=== PATIENT | female | born 1985 | race Caucasian/White ===

== ENCOUNTER → 2021-01-11 14:05 | Outpatient (BNVA) | payer MEDICARE, MEDICAID, SELFPAY | PROVIDERS: PCP Internal Medicine; Referring Provider Internal Medicine; Visit Provider Physician Assistant | DX: E66.01 Morbid (severe) obesity due to excess calories (principal); K91.2 Postsurgical malabsorption, not elsewhere classified; Z90.3 Acquired absence of stomach [part of]; Z68.41 Body mass index [BMI] 40.0-44.9, adult | CPT/HCPCS: 99202 ==

== ENCOUNTER 2021-01-15 09:10 | Outpatient (REF) | payer MEDICARE, MEDICAID, SELFPAY ==
[2021-01-15 10:12] LABS: MANUAL DIFF FLAG NO
[2021-01-15 10:13] LABS: Basophils Percent Auto 0.2 % (0-2); Eosinophils Percent Auto 0.6 % (0-4); Hematocrit 39.1 % (37-47); Hemoglobin 12.1 g/dl (12.0-16.0); Imm Gran Abs Auto 0.01 X10*3/uL (0.00-0.03); Imm Gran Pct Auto 0.2 % (0.0-0.4); Lymphocytes Absolute Auto 1.4 X10*3/uL (1.2-4.9); Lymphocytes Percent Auto 22.9 % (20-40); Mean Corpuscular HGB Conc 30.9 g/dl (31.0-35.0); Mean Corpuscular Hemoglobin 25.9 pg (27.0-33.0); Mean Corpuscular Volume 83.5 fL (80-98); Mean Platelet Volume 9.8 fL (9.4-12.3); Monocytes Absolute Auto 0.4 X10*3/uL (0.1-1.2); Monocytes Percent Auto 5.6 % (2-11); Neutrophils Absolute Auto 4.4 X10*3/uL (2.0-8.3); Neutrophils Percent Auto 70.5 % (45-73); Platelet Count 248 X10*3/uL (160-400); Red Blood Count 4.68 X10*6/uL (4.20-5.50); Red Cell Distribution Width 15.2 % (11.0-16.0); White Blood Count 6.2 X10*3/uL (4.8-10.8)
[2021-01-15 10:21] LABS: Estimated Average Glucose 105 mg/dL; Hemoglobin A1c % 5.3 %
[2021-01-15 10:40] LABS: Alanine Aminotransferase 18 U/L (0-31); Albumin Level 4.2 g/dL (3.5-5.0); Alkaline Phosphatase 46 U/L (39-117); Anion Gap 12 (12-20); Aspartate Amino Transferase 25 U/L (5-31); Bilirubin Total 0.6 mg/dL (0.0-1.0); Blood Urea Nitrogen 9 mg/dL (9-16); C Reactive Protein 0.17 mg/dL (< or = 0.50); Calcium 9.3 mg/dL (8.4-10.2); Carbon Dioxide 26 mmol/L (22-29); Chloride 106 mmol/L (96-108); Cholesterol 130 mg/dL; Estimated Glomerular Filt Rate > 60; Glucose Fasting 96 mg/dL (60-99); HDL Cholesterol 59 mg/dL; Iron 41 mcg/dL (30-160); LDL Cholesterol Calculated 60 mg/dl; Percent Iron Saturation 10 % (15-50); Potassium 3.8 mmol/L (3.3-5.1); Sodium 140 mmol/L (135-145); Total Iron Binding Capacity 407 mcg/dL (228-428); Total Protein 7.5 g/dL (6.5-8.0); Triglycerides 55 mg/dL; Unsaturated Iron Binding 366 ug/dL
[2021-01-15 11:03] LABS: Ferritin 11 ng/mL (10-122); TSH reflex Free T4 1.49 uIU/mL (0.32-4.0)
[2021-01-15 11:31] LABS: Folate 13.3 ng/mL (> or = 4.0); Vitamin B12 493 pg/mL (200-900)
[2021-01-16 08:51] LABS: Insulin Level Total 14.2 uIU/mL
[2021-01-16 19:47] LABS: Calcium (PTHI) 9.4 mg/dL (8.6-10.2); PTHI 55 pg/mL (14-64)
[2021-01-18 06:51] LABS: Zinc 95 mcg/dL (60-130)
[2021-01-19 11:32] LABS: Vitamin B1 <6 nmol/L (8-30)
[2021-01-20 00:52] LABS: Vitamin A 34 mcg/dL (38-98)
== END 2021-01-15 09:11 | disposition home or self-care (01) ==
LOC: HO.10HDL 09:10
PROVIDERS: Visit Provider Physician Assistant
DX: K91.2 Postsurgical malabsorption, not elsewhere classified (principal); E66.01 Morbid (severe) obesity due to excess calories; Z68.41 Body mass index [BMI] 40.0-44.9, adult; Z90.3 Acquired absence of stomach [part of]
CPT/HCPCS: 36415; 80053; 80061; 82306; 82607; 82728; 82746; 83036; 83525; 83540; 83970; 84425; 84443; 84590; 84630; 85025; 86140

== ENCOUNTER 2021-01-25 10:03 | Day surgery (SDC) | payer MEDICARE, MEDICAID, SELFPAY ==
[2021-01-18 13:14] VITALS: BMI 44.4
--- NOTE | 2021-01-24 07:56 | HO.ANESPROP2 ---
Documented by User: Jillian Grayney 01/24/21 07:57 HPI - Anesthesia Eval Consult details Narrative: 35yo F for Upper Endoscopy s/p gastric sleeve 2018 [facility] Active Problems Active Problems: All Active Problems (Updated 01/22/21 @ 17:02 by Sofi Chavarria PA-C) Vitamin A deficiency (Acute) Vitamin D deficiency (Acute) Vitamin B12 deficiency (Acute) History of sleeve gastrectomy (Acute) Intestinal malabsorption following gastrectomy (Acute) Morbid obesity (Acute) Adult BMI 40.0-44.9 kg/sq m (Acute) Arthritis (Acute) Past Medical History Medical History Adult BMI 40.0-44.9 kg/sq m Arthritis Asthma Intestinal malabsorption following gastrectomy Morbid obesity Vitamin A deficiency Vitamin B12 deficiency Vitamin D deficiency Family History Family History Mother Arthritis Hepatitis C Father No problems noted. Brother No problems noted. Sister No problems noted. Sister No problems noted. Sister No problems noted. Sister No problems noted. Son No problems noted. Son No problems noted. Daughter No problems noted. 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 If so, by whom?: No Are you DNR?: No Advance Directives Information Provided: No Recently lost weight without trying: No Eating poorly because of decreased appetite: No Nutrition Risks: No Nutritional Risk Patient : No FDLMP: 12/30/20 : No Poor oral hygiene: No Meds Allergies Allergy/AdvReac Type Severity Reaction Status Date / Time No Known Allergies Allergy Verified 01/25/21 10:16 Home Medications Medication Instructions Recorded Confirmed Last Taken Type acetaminophen 325 mg capsule 325 mg PO QID PRN 01/11/21 01/18/21 Unknown History albuterol sulfate [Ventolin HFA] 2 puff INHALATION Q4-6H PRN 01/18/21 01/18/21 Unknown History multivitamin 1 tab PO DAILY 01/18/21 01/18/21 Unknown History Exam Exam Date and Time: January 24, 2021 0756 Height,Weight and Vital Signs: Height 5 ft 4 in Weight 117.299 kg Assessment and Plan Assessment Anesthesia Assessment: Chart Reviewed Documented by User: Taina Nieves 01/25/21 11:13 [facility] Past Medical History Medical History Adult BMI 40.0-44.9 kg/sq m Arthritis Asthma Intestinal malabsorption following gastrectomy Morbid obesity Vitamin A deficiency Vitamin B12 deficiency Vitamin D deficiency Family History Family History Mother Arthritis Hepatitis C Father No problems noted. Brother No problems noted. Sister No problems noted. Sister No problems noted. Sister No problems noted. Sister No problems noted. Son No problems noted. Son No problems noted. Daughter No problems noted. 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 If so, by whom?: No Are you DNR?: No Advance Directives Information Provided: No Recently lost weight without trying: No Eating poorly because of decreased appetite: No Nutrition Risks: No Nutritional Risk Patient : No FDLMP: 12/30/20 : No Poor oral hygiene: No Meds Allergies Allergy/AdvReac Type Severity Reaction Status Date / Time No Known Allergies Allergy Verified 01/25/21 10:16 Home Medications Medication Instructions Recorded Confirmed Last Taken Type acetaminophen 325 mg capsule 325 mg PO QID PRN 01/11/21 01/18/21 Unknown History albuterol sulfate [Ventolin HFA] 2 puff INHALATION Q4-6H PRN 01/18/21 01/18/21 Unknown History multivitamin 1 tab PO DAILY 01/18/21 01/18/21 Unknown History Exam Height,Weight and Vital Signs: Vital Signs Temp Pulse Resp BP Pulse Ox 01/25/21 10:40 96.9 F 53 20 107/63 97 Pertinent Lab Results Pertinent Lab Results: Lab Results 01/25/21 01/25/21 Range/Units 10:20 10:25 Urine Test NEGATIVE (NEGATIVE) COVID-19 ([facility]MARIO) Negative (Negative) COVID-19 Clin Com See Note Airway Mallampati Class: II TM Dist: >3cm Neck ROM: Full Heart: RRR Lungs: CTAB Assessment and Plan Assessment Anesthesia Assessment: Anesthesia Plan Discussed and Chart Reviewed Final Anesthetic Review NPO: Yes ASA Class: III Final Preanesthetic Review: No Changes in Pt Med Stat, Meds/Allgs Chart Reviewed, Consent Obtained/Reviewed and Anes Risks/Benef Reviewed Patient Risk: Intermediate Procedure Risk: Low Assessment/Block/Sedation in SS: Assess/Block/Sedation-SS Anesthetic Plan Anesthetic Plan: MAC: Disposition: Standard PACU
--- NOTE | 2021-01-24 23:09 | MHC.SHP ---
Pre-Procedural Eval Section A The patient is an INPATIENT: No The History & Physical has been completed within 30 days and I have reviewed it.: Yes Section B Chief Complaint: reflux Details of Present Illness: GERD Relevant Family History (Specify if Yes): No Relevant Social History: None Present Medications: see Short Stay Collaborative assessment Medical History: No relevant PMH History of Previous Operations: Relevant previous surgery/procedure and date(s) (sleeve gastrectomy) Allergies: Allergies Allergy/AdvReac Type Severity Reaction Status Date / Time No Known Allergies Allergy Verified 01/11/21 14:42 Review of Systems Sugical H&P ROS: Negative: Constitution, Cardiovascular, Respiratory, Neurological, Psychiatric, Hem-Onc, Allergic/Immunologic, Gastrointestinal, Genitourinary, Musculoskeletal, Integumentary, Endocrine and Eyes/Ears/Nose/Throat Exam Surgical H&P Exam: Normal: HEENT, Normal: Heart, Normal: Lungs, Normal: Extremities, Normal: Abdomen, Normal: Skin and Normal: Neurological Plan Diagnosis/Plan: Unchanged (EGD to assess GERD and sleeve anatomy) I have reviewed the history and physical and performed a pertinent physical examination on my patient. No changes have occurred unless specified.
[2021-01-25 10:40] VITALS: BP 107/63; PULSE 53; RESP 20; TEMP 36.1; O2SAT 97
[2021-01-25 10:43] LABS: UPreg QC Valid YES; Urine Pregnancy NEGATIVE (NEGATIVE)
[2021-01-25] MEDS: Lactated Ringers 1,000 ML 100 ML IVCONT (10:52)
[2021-01-25 10:54] LABS: COVID-19 Test Negative (Negative)
--- NOTE | 2021-01-25 12:47 | PM.OP ---
Brief Operative Note Date of Service: 01/25/21 Pre-op diagnosis: Inadequate weight loss, s/p sleeve gastrectomy Post-op diagnosis: same (extremely redundant gastric fundus and functional narrowing at mid-sleeve) Procedure: PROCEDURE DATE: 09/23/2019 PREOPERATIVE DIAGNOSIS: GERD, s/p sleeve gastrectomy POSTOPERATIVE DIAGNOSIS: Same as above. 1) small hiatal hernia, 2) distal gastritis PROCEDURE: [id number]-vzbelfjybdci with biopsies Surgeon: Nate Sotelo M.D.. Ph.D. Jewelry Maker: None Anesthesia: IV sedation Estimated blood loss: Minimal FINDINGS AND PROCEDURE: OPERATIVE INDICATIONS: The patient is a 35 year old female known to me who underwent a laparoscopic sleeve gastrectomy elsewhere. The patient had inadequate weight loss so far and present for a revision. Based on this information I recommended an upper endoscopy to evaluate the patient's symptoms. Risks and complications of the surgery were discussed with the patient in advance particularly the possibility of perforation or bleeding that may require surgical intervention. The patient understood the risks and was in agreement with the plan. PROCEDURE: After informed consent was obtained by the patient, the patient was transferred to the Operating Room and was placed in the supine position. After successful induction of IV sedation, a mouth block was inserted and the patient was placed in the left lateral decubitus position. An upper endoscopy was performed next, the oropharynx and esophagus appeared within the normal limits. There was no hiatal hernia. The z-line was smooth. Two biopsies were obtained from the distal esohagus 2-3 cm proximal to the GE junction and two additional biopsies from the GE junction. The sleeve was entered. There was significant redundancy of the proximal fundus suggesting incomplete resection at the time of the original sleeve gastrectomy. There was also a functional narrowing at the incisura angularis. The scope was pass easily through but the lumen in that area is significantly smaller compared to the remaining proximal and distal sleeve. There was no ulcer. Biopsy was obtained from the proximal sleeve. No significant bleeding was noted from any of the biopsy sites. The scope was then advanced into the duodenum which appeared to be normal as well. At that point the duodenum and the sleeve were decompressed and the scope was withdrawn from the patient's mouth. The patient extubated and was transferred in stable condition to the Recovery Room for further care. I was present and performed all steps of the procedure. There were no residents to assist with this case. Nate Sotelo M.D., Ph.D. Surgeon: César Sotelo MD Anesthesia: MAC Was an Jewelry Maker used for this Procedure?: No Estimated blood loss (mL): 0 IV fluids (mL): 400 Urine output (mL): 0 (No Marte to record) Pathology: other (GEJ x2, distal esophagus x2, proximal sleeve x1) Condition: stable Disposition: PACU
[2021-01-25 12:51] VITALS: BP 99/64; PULSE 82; RESP 16; TEMP 36.1; O2SAT 100
[2021-01-25 13:11] VITALS: BP 107/64; PULSE 54; RESP 18; TEMP 36.5; O2SAT 99
== END 2021-01-25 13:35 ==
LOC: HO.SSS 10:03
PROVIDERS: Nurse Practitioner; PCP Internal Medicine; Visit Provider Surgery
PROC: 0DJ08ZZ Inspection of Upper Intestinal Tract, Via Natural or Artificial Opening Endoscopic (ICD-10-PCS; CPT 43235; principal; 2021-01-25 11:40)
DX: K21.9 Gastro-esophageal reflux disease without esophagitis (principal); K91.2 Postsurgical malabsorption, not elsewhere classified; Z90.3 Acquired absence of stomach [part of]; K31.89 Other diseases of stomach and duodenum; K29.70 Gastritis, unspecified, without bleeding; K44.9 Diaphragmatic hernia without obstruction or gangrene; E66.01 Morbid (severe) obesity due to excess calories; Z68.41 Body mass index [BMI] 40.0-44.9, adult; Z98.84 Bariatric surgery status; J45.909 Unspecified asthma, uncomplicated; E50.9 Vitamin A deficiency, unspecified; E53.8 Deficiency of other specified B group vitamins; E55.9 Vitamin D deficiency, unspecified; Z90.49 Acquired absence of other specified parts of digestive tract; Z79.899 Other long term (current) drug therapy; Z87.891 Personal history of nicotine dependence; Z20.822 Contact with and (suspected) exposure to COVID-19
CPT/HCPCS: 43239; 36415; 81025; 87635; 88305; 88342

== ENCOUNTER → 2021-02-01 14:01 | Outpatient (BNVA) | payer MEDICARE, MEDICAID, SELFPAY | PROVIDERS: PCP Internal Medicine; Referring Provider Internal Medicine; Visit Provider Physician Assistant | DX: E66.01 Morbid (severe) obesity due to excess calories (principal); K91.2 Postsurgical malabsorption, not elsewhere classified; Z90.3 Acquired absence of stomach [part of]; Z68.41 Body mass index [BMI] 40.0-44.9, adult | CPT/HCPCS: 99212 ==

== ENCOUNTER → 2021-02-12 11:27 | Outpatient (BNVA) | payer MEDICARE, MEDICAID, SELFPAY | PROVIDERS: PCP Internal Medicine; Visit Provider Surgery | DX: E66.01 Morbid (severe) obesity due to excess calories (principal); J45.909 Unspecified asthma, uncomplicated; M19.90 Unspecified osteoarthritis, unspecified site; K91.2 Postsurgical malabsorption, not elsewhere classified; Z90.3 Acquired absence of stomach [part of] | CPT/HCPCS: 99212 ==

== ENCOUNTER 2021-02-21 08:58 | Outpatient (REF) | payer MEDICARE, MEDICAID, SELFPAY ==
--- NOTE | ~2021-02-21 | FL_ITS ---
EXAMINATION: XR GI SERIES CLINICAL INFORMATION: Postsurgical malabsorption. History of gastric sleeve procedure. COMPARISON: None TECHNIQUE: Upper GI was performed using thin and thick barium and effervescent granules FINDINGS: Esophageal motility is normal. There is gastroesophageal reflux. No hernia is seen. There does not appear to be significant reduction in the size of the stomach post gastric sleeve. On the left lateral view there is a vertical cleft visualized in the proximal stomach may be related to patient's gastric sleeve procedure. No mass, stricture, fold thickening or ulcer is seen. FLUOROSCOPY TIME: 0.9 minutes DOSE AREA PRODUCT: 12 mock per centimeter squared. Total dose 46 mgy. 19 saved fluoroscopic images. FL/FL upper GI series IMPRESSION: Mild gastroesophageal reflux.
--- NOTE | ~2021-02-21 | US_ITS ---
EXAMINATION: US COMPLETE ABDOMEN WITH LIVER ELASTOGRAPHY CLINICAL INFORMATION: Obesity COMPARISON: None. TECHNIQUE: Real-time imaging of the abdominal viscera. Noninvasive ultrasound liver fibrosis assessment is performed using Oj ElastPQ point quantification shear wave elastography (pSWE) with a C5-2 MHz transducer. Multiple elastography samples are obtained. FINDINGS: PANCREAS: The head of the pancreas is normal-appearing. The body and tail the pancreas are not well visualized due to bowel gas. ABDOMINAL AORTA: The proximal, middle, and distal aortic segments are normal in caliber. INFERIOR VENA CAVA: Visualized portions are normal. LIVER: Normal. The liver demonstrates normal size, contour and echogenicity. No focal lesion or intrahepatic biliary duct dilatation. The right lobe measures 16 cm in length. The left lobe measures 10 cm in length. Portal flow is normal/hepatopedal Shear wave liver elastography median stiffness is 1.44 m/s (reference: normal median stiffness is 1.3 m/s or less). IQR/median stiffness to assess sampling precision is 0.22 (reference: good quality data set is IQR/median stiffness of 0.15 or less). GALLBLADDER: Surgically removed COMMON BILE DUCT: Normal in caliber measuring 0.2 cm in diameter. RIGHT KIDNEY: Normal. No hydronephrosis. No renal calculi or focal parenchymal lesions. The kidney measures 11 cm in maximum dimension. LEFT KIDNEY: Normal. No hydronephrosis. No renal calculi or focal parenchymal lesions. The kidney measures 12 cm in maximum dimension. SPLEEN: Normal. The spleen measures 11 cm in maximum dimension. FREE FLUID: None. US/US abdomen comp w elastography IMPRESSION: 1. Impression: Normal-appearing liver. Limited visualization of the pancreas. Post cholecystectomy. 2. Liver elastography: Slightly limited due to sampling error. In the absence of other known clinical signs, rules out compensated advanced chronic liver disease. REFERENCE: Society of Radiologists in Ultrasound Liver Stiffness Thresholds (2020): LIVER STIFFNESS THRESHOLDS: *Liver Stiffness equal or less than 1.3 m/s: High probability of being normal. *Liver Stiffness less than 1.7 m/s: In the absence of other known clinical signs, rules out compensated advanced chronic liver disease. *Liver Stiffness 1.7-2.1 m/s: Suggestive of compensated advanced chronic liver disease but need further test for confirmation. *Liver Stiffness over 2.1 m/s: Rules in compensated advanced chronic liver disease. *Liver Stiffness over 2.4 m/s: Suggestive of clinically significant portal hypertension. QUALITY OF DATA SET: *IQR/Median value equal or less than 0.15 implies a quality data set. *IQR/Median value over 0.15 implies a poor quality data set. SIGNIFICANT CHANGE FROM PRIOR EXAM: Significant change if liver stiffness measurement is 10% or greater from prior exam. OTHER CONSIDERATIONS: The stage of liver fibrosis may be overestimated in the setting of acute hepatitis, liver inflammation, elevated liver function tests, hepatic vascular congestion, obstructive cholestasis, non-fasting state, and infiltrative diseases such as amyloidosis and lymphoma. In some patients with NAFLD, the liver stiffness thresholds for compensated advanced chronic liver disease may be lower. In causes other than viral hepatitis and NAFLD, liver stiffness thresholds are not well established.
--- NOTE | ~2021-02-21 | XR_ITS ---
EXAMINATION: XR CHEST CLINICAL INFORMATION: Morbid/severe obesity DEXA scan arteries COMPARISON: None TECHNIQUE: 2 views of the chest were obtained. FINDINGS: No significant abnormality is noted involving the heart, lungs, mediastinum, bony thorax or soft tissues. XR/XR chest 2V IMPRESSION: Unremarkable chest exam
--- NOTE | 2021-02-21 10:24 | ECG_ITS ---
Test Reason : MORBID OBESITY Blood Pressure : / mmHG Vent. Rate : 049 BPM Atrial Rate : 049 BPM P-R Int : 162 ms QRS Dur : 100 ms QT Int : 438 ms P-R-T Axes : 031 012 -13 degrees QTc Int : 395 ms Sinus bradycardia Otherwise normal ECG No previous ECGs available Referred By: Sofi Chavarria Electronically Signed By:CECIL ESPINOZA
== END 2021-02-21 08:59 | disposition home or self-care (01) ==
LOC: HO.US 08:58
PROVIDERS: Absent Provider Physician Assistant; PCP Internal Medicine; Visit Provider Surgery
DX: Z01.818 Encounter for other preprocedural examination (principal); E66.01 Morbid (severe) obesity due to excess calories; Z68.41 Body mass index [BMI] 40.0-44.9, adult; K21.9 Gastro-esophageal reflux disease without esophagitis; Z90.3 Acquired absence of stomach [part of]
CPT/HCPCS: 71046; 74240; 76705; 76981; 93005

== ENCOUNTER → 2021-03-01 08:16 | Outpatient (BNVA) | payer MEDICARE, MEDICAID, SELFPAY | PROVIDERS: PCP Internal Medicine; Visit Provider Dietitian, Registered | DX: E66.9 Obesity, unspecified (principal); Z68.41 Body mass index [BMI] 40.0-44.9, adult | CPT/HCPCS: 97802 ==

== ENCOUNTER → 2021-03-19 07:09 | Outpatient (BNVA) | payer MEDICARE, MEDICAID, SELFPAY | PROVIDERS: PCP Internal Medicine; Visit Provider Surgery | DX: E66.01 Morbid (severe) obesity due to excess calories (principal); Z68.41 Body mass index [BMI] 40.0-44.9, adult | CPT/HCPCS: Q3014 ==

== ENCOUNTER → 2021-04-03 08:10 | Outpatient (BNVA) | payer MEDICARE, MEDICAID, SELFPAY | PROVIDERS: PCP Internal Medicine; Visit Provider Dietitian, Registered ==

== ENCOUNTER → 2021-04-30 07:21 | Outpatient (BNVA) | payer MEDICARE, MEDICAID, SELFPAY | PROVIDERS: PCP Internal Medicine; Visit Provider Surgery | DX: E66.01 Morbid (severe) obesity due to excess calories (principal) | CPT/HCPCS: Q3014 ==

== ENCOUNTER → 2021-05-02 08:12 | Outpatient (BNVA) | payer MEDICARE, MEDICAID, SELFPAY | PROVIDERS: PCP Internal Medicine; Referring Provider Internal Medicine; Visit Provider Dietitian, Registered | DX: E66.9 Obesity, unspecified (principal); Z68.41 Body mass index [BMI] 40.0-44.9, adult | CPT/HCPCS: 97803 ==

== ENCOUNTER → 2021-06-04 09:49 | Outpatient (BNVA) | payer MEDICARE, MEDICAID, SELFPAY | PROVIDERS: PCP Internal Medicine; Visit Provider Surgery | CPT/HCPCS: Q3014 ==

== ENCOUNTER → 2021-07-25 07:58 | Outpatient (BNVA) | payer MEDICARE, MEDICAID, SELFPAY | PROVIDERS: PCP Internal Medicine; Visit Provider Surgery | CPT/HCPCS: Q3014 ==

== ENCOUNTER → 2022-12-13 10:09 | Outpatient (REF) | payer MEDICARE, MEDICAID, SELFPAY ==
--- NOTE | 2022-12-13 11:34 | ECG_ITS ---
Test Reason : E66.01 Blood Pressure : / mmHG Vent. Rate : 061 BPM Atrial Rate : 061 BPM P-R Int : 150 ms QRS Dur : 096 ms QT Int : 428 ms P-R-T Axes : 027 028 022 degrees QTc Int : 430 ms Normal sinus rhythm with sinus arrhythmia Normal ECG When compared with ECG of 21-FEB-2021 10:41, Nonspecific T wave abnormality has replaced inverted T waves in Inferior leads Referred By: Karl Mendoza Electronically Signed By:Valente Neri
== END ==
LOC: HO.CARD 10:09
PROVIDERS: PCP Internal Medicine; Visit Provider Physician Assistant Surgical
DX: E66.01 Morbid (severe) obesity due to excess calories (principal); E55.9 Vitamin D deficiency, unspecified; E53.8 Deficiency of other specified B group vitamins; E50.9 Vitamin A deficiency, unspecified
CPT/HCPCS: 93005; 99212

== ENCOUNTER 2022-12-20 08:49 | Outpatient (REF) | payer MEDICARE, MEDICAID, SELFPAY ==
[2022-12-20 09:10] LABS: MANUAL DIFF FLAG NO
[2022-12-20 09:19] LABS: Basophils Percent Auto 0.5 % (0-2); Eosinophils Absolute Auto 0.1 X10*3/uL (0.0-0.4); Hematocrit 36.2 % (37.0-47.0); Hemoglobin 11.2 g/dl (12.0-16.0); Imm Gran Abs Auto 0.01 X10*3/uL (0.00-0.03); Imm Gran Pct Auto 0.2 % (0.0-0.4); Lymphocytes Absolute Auto 1.7 X10*3/uL (1.2-4.9); Lymphocytes Percent Auto 27.9 % (20-40); Mean Corpuscular HGB Conc 30.9 g/dl (31.0-35.0); Mean Corpuscular Hemoglobin 23.7 pg (27.0-33.0); Mean Corpuscular Volume 76.7 fL (80.0-98.0); Mean Platelet Volume 9.7 fL (9.4-12.3); Monocytes Absolute Auto 0.5 X10*3/uL (0.1-1.2); Monocytes Percent Auto 7.9 % (2-11); Neutrophils Absolute Auto 3.9 x10*3/uL (2.0-8.3); Neutrophils Percent Auto 62.5 % (45-73); Platelet Count 293 X10*3/uL (160-400); Red Blood Count 4.72 X10*6/uL (4.20-5.50); Red Cell Distribution Width 15.5 % (11.0-16.0); White Blood Count 6.2 X10*3/uL (4.8-10.8)
[2022-12-20 09:32] LABS: Estimated Average Glucose 114 mg/dL; Hemoglobin A1c % 5.6 %
[2022-12-20 10:10] LABS: Alanine Aminotransferase 26 U/L (0-31); Albumin Level 4.1 g/dL (3.5-5.0); Alkaline Phosphatase 55 U/L (39-117); Anion Gap 11 (12-20); Aspartate Amino Transferase 20 U/L (5-31); Bilirubin Total 0.5 mg/dL (0.0-1.0); Blood Urea Nitrogen 12 mg/dL (9-16); C Reactive Protein 0.27 mg/dL (< or = 0.50); Carbon Dioxide 26 mmol/L (22-29); Chloride 109 mmol/L (96-108); Cholesterol 121 mg/dL; Estimated Glomerular Filt Rate > 60; Glucose Random 92 mg/dL (60-115); HDL Cholesterol 44 mg/dL; Iron 38 mcg/dL (30-160); LDL Cholesterol Calculated 68 mg/dl; Percent Iron Saturation 11 % (15-50); Potassium 4.1 mmol/L (3.3-5.1); Sodium 142 mmol/L (135-145); Total Iron Binding Capacity 333 mcg/dL (228-428); Total Protein 7.4 g/dL (6.5-8.0); Triglycerides 45 mg/dL; Unsaturated Iron Binding 295 ug/dL
[2022-12-20 10:37] LABS: Ferritin 12 ng/mL (10-122); Folate 13.3 ng/mL (> or = 4.0); Insulin 9 uU/mL (2-29); TSH reflex Free T4 1.72 uIU/mL (0.32-4.0); Vitamin B12 548 pg/mL (200-900); Vitamin D 25-OH Total 30.5 ng/mL (>30)
[2022-12-23 11:03] LABS: Calcium (PTHI) 9.2 mg/dL (8.6-10.2); PTHI 55 pg/mL (16-77)
[2022-12-25 00:44] LABS: Zinc 106 mcg/dL (60-130)
[2022-12-26 19:58] LABS: Vitamin A 34 mcg/dL (38-98)
[2022-12-27 05:59] LABS: Vitamin B1 9 nmol/L (8-30)
== END 2022-12-20 08:50 | disposition home or self-care (01) ==
LOC: HO.LAB 08:49
PROVIDERS: PCP Internal Medicine; Visit Provider Physician Assistant Surgical
DX: E53.8 Deficiency of other specified B group vitamins (principal); E55.9 Vitamin D deficiency, unspecified; E66.01 Morbid (severe) obesity due to excess calories; E50.9 Vitamin A deficiency, unspecified
CPT/HCPCS: 36415; 80053; 80061; 82306; 82607; 82728; 82746; 83036; 83525; 83540; 83970; 84425; 84443; 84590; 84630; 85025; 86140

== ENCOUNTER 2023-01-03 10:12 | Outpatient (REF) | payer MEDICARE, MEDICAID, SELFPAY ==
[2023-01-04 14:08] LABS: H Pylori Breath Test Negative (Negative)
== END 2023-01-03 10:13 | disposition home or self-care (01) ==
LOC: HO.LNP 10:12
PROVIDERS: PCP Internal Medicine; Visit Provider Physician Assistant Surgical
DX: E66.01 Morbid (severe) obesity due to excess calories (principal); E55.9 Vitamin D deficiency, unspecified; E53.8 Deficiency of other specified B group vitamins; E50.9 Vitamin A deficiency, unspecified
CPT/HCPCS: 83013; 99211; 99212